=== PATIENT | male | born 1990 | race Caucasian/White ===

== ENCOUNTER 2016-07-27 16:54 | Emergency (ER) | payer OTHER ==
[~2016-07-27] VITALS: Ht 177.8 cm; Wt 102.3 kg
[~2016-07-27 16:54] MED LIST: CYCL-309 PO; NOCURR; VICOT
[2016-07-27] MEDS ORDERED: ACETAMINOPHEN 325 MG TABLET PO ONE (18:15)
[2016-07-27 20:33] VITALS: BP 125/73
== END 2016-07-27 20:49 | disposition home or self-care (01) ==
LOC: EMS 16:56
DX: S33.5XXA Sprain of ligaments of lumbar spine, initial encounter (principal); M62.830 Muscle spasm of back; X58.XXXA Exposure to other specified factors, initial encounter; Y93.89 Activity, other specified; Y92.89 Other specified places as the place of occurrence of the external cause; Y99.8 Other external cause status
CPT/HCPCS: 72100; 99284